=== PATIENT | female | born 2000 | race Caucasian/White ===

== ENCOUNTER → 2019-06-19 | Outpatient (CLI) | payer OTHER ==
[2019-06-19 12:18] LABS: ABSOLUTE BASOPHILS 0.1 thou/uL (0.0-0.2); ABSOLUTE EOSINOPHILS 0.1 thou/uL (0.0-0.7); ABSOLUTE LYMPHOCYTES 1.4 thou/uL (0.8-5.3); ABSOLUTE MONOCYTES 0.4 thou/uL (0.0-1.2); ABSOLUTE NEUTROPHILS 3.5 thou/uL (1.6-8.1); BASOPHILS 1.2 %; HEMATOCRIT 39.7 % (37.0-47.0); HEMOGLOBIN 13.6 gm/dL (12.0-15.0); LYMPHOCYTES 25.8 %; MCH 30.8 pg (26.0-34.0); MCHC 34.2 g/dL (28.0-37.0); MCV 90.2 fL (80.0-100.0); MONOCYTES 7.7 %; MPV 7.5 fl. (7.2-11.1); NUCLEATED RBCS 0 /100WBC; PLATELET COUNT* 405 thou/uL (150-400); POLYS 64.3 %; RBC 4.41 mil/uL (4.20-5.00); RDW-CV 12.4 % (10.5-14.5); WBC 5.5 thou/uL (4.0-11.0)
[2019-06-19 23:07] LABS: IgG 1126 mg/dL (700-1600)
[2019-06-20 12:11] LABS: ANA INTERPRETATION Positive (Negative)
[2019-06-23 16:09] LABS: GLOBULIN TOTAL 3.3 g/dL (2.2-3.9); M-SPIKE Not Observed g/dL (Not Observed)
[2019-07-02 08:07] LABS: IgM 97 mg/dL (26-217)
== END ==
LOC: M.LAB 11:45
DX: T69.1XXD Chilblains, subsequent encounter (principal)